=== PATIENT | female | born 1995 | race American Indian/Alaskan Native ===

== ENCOUNTER 2017-09-28 18:10 | Emergency (ER) | payer OTHER ==
[2017-09-28 20:38] VITALS: BP 133/79
[2017-09-28 20:55] LABS: Basophils % (Auto) 0.5 % (0.0-1.8); Eosinophils % (Auto) 1.3 % (0.0-4.3); Hematocrit 40.4 % (30.3-42.9); Hemoglobin 13.6 gm/dl (10.1-14.3); Mean Corpuscular HGB Conc 34 % (30-34); Mean Corpuscular Hemoglobin 32 pg (28-32); Mean Corpuscular Volume 95 fl (79-97); Platelet Count 281 K/mm3 (140-440); Red Blood Count 4.27 M/mm3 (3.65-5.03); Red Cell Distribution Width 13.7 % (13.2-15.2)
[2017-09-28 21:15] LABS: White Blood Count 9.4 K/mm3 (4.5-11.0)
[2017-09-29 01:28] LABS: Bacteria,Urine 1+ /HPF (Negative); Bilirubin,Urine NEG (Negative); Blood,Urine NEG (Negative); Ketones,Urine NEG (Negative); Leukocyte Esterase,Urine NEG (Negative); Mucus,Urine FEW /HPF; Nitrite,Urine NEG (Negative); Protein,Urine <15 mg/dL mg/dL (Negative)
== END 2017-09-29 02:00 | disposition left against medical advice (07) ==
LOC: ED 18:10
DX: R58 Hemorrhage, not elsewhere classified (principal); Z53.21 Procedure and treatment not carried out due to patient leaving prior to being seen by health care provider
CPT/HCPCS: 36415; 81001; 84702; 84703; 85025; 86850; 86900; 86901

== ENCOUNTER 2018-02-01 00:21 | Emergency (ER) | payer OTHER ==
[2018-02-01 01:34] VITALS: BP 136/90
[2018-02-01 02:06] LABS: Basophils % (Auto) 0.3 % (0.0-1.8); Eosinophils # (Auto) 0.1 K/mm3 (0.0-0.4); Eosinophils % (Auto) 0.9 % (0.0-4.3); Hematocrit 41.5 % (30.3-42.9); Hemoglobin 14.4 gm/dl (10.1-14.3); Lymphocytes # (Auto) 2.3 K/mm3 (1.2-5.4); Mean Corpuscular HGB Conc 35 % (30-34); Mean Corpuscular Hemoglobin 33 pg (28-32); Mean Corpuscular Volume 94 fl (79-97); Monocytes # (Auto) 0.9 K/mm3 (0.0-0.8); Monocytes % (Auto) 8.3 % (0.0-7.3); Platelet Count 303 K/mm3 (140-440); Red Cell Distribution Width 14.5 % (13.2-15.2)
[2018-02-01 03:21] LABS: Bilirubin,Urine NEG (Negative); Blood,Urine NEG (Negative); Color,Urine Yellow (Yellow); Mucus,Urine FEW /HPF; Protein,Urine <15 mg/dL mg/dL (Negative)
--- NOTE | 2018-02-01 07:40 | Emergency Department Report ---
ED Female HPI - General Chief complaint: Vaginal Bleeding Stated complaint: STOMACH PAIN,.VAGINAL BLEEDING,CRAMP Time Seen by Provider: 02/01/18 07:21 Source: patient Mode of arrival: Ambulatory Limitations: No Limitations - History of Present Illness Initial comments: Has been having irregular menstrual cycles for the past 3 months. Presents today with 1 day of light vaginal bleeding and intermittent bilateral lower abdominal pain. At time of presentation to the ER, patient's pain has resolved. She hasn't taken anything for it at home. Denies urinary complaints. Patient is not concerned for STDs. Denies vomiting. Endorses nausea. She has an appointment with her [employer] [facility] in 3 days. - Related Data Allergies Allergy/AdvReac Type Severity Reaction Status Date / Time No Known Allergies Allergy Unverified 09/28/17 20:29 ED Review of Systems ROS: Stated complaint: STOMACH PAIN,.VAGINAL BLEEDING,CRAMP Other details as noted in HPI Comment: All other systems reviewed and negative Gastrointestinal: abdominal pain, nausea Genitourinary: abnormal menses ED Past Medical Hx - Past Medical History Previous Medical History?: Yes Hx Asthma: Yes - Surgical History Past Surgical History?: No - Social History Smoking Status: Current Some Day Smoker ED Physical Exam - General Limitations: No Limitations General appearance: alert, in no apparent distress - Head Head exam: Present: atraumatic, normocephalic - Eye Eye exam: Present: normal appearance - Respiratory Respiratory exam: Present: normal lung sounds bilaterally. Absent: respiratory distress - Cardiovascular Cardiovascular Exam: Present: regular rate, normal rhythm. Absent: systolic murmur, diastolic murmur, rubs, gallop - GI/Abdominal GI/Abdominal exam: Present: soft, normal bowel sounds. Absent: distended, tenderness - Neurological Exam Neurological exam: Present: alert, oriented X3 - Psychiatric Psychiatric exam: Present: normal affect, normal mood - Skin Skin exam: Present: warm, dry, intact, normal color. Absent: rash ED Course Vital Signs 02/01/18 02/01/18 01:27 04:07 Temperature 98.7 F Pulse Rate 77 Respiratory 20 16 Rate Blood Pressure 136/90 O2 Sat by Pulse 100 100 Oximetry ED Medical Decision Making - Lab Data Result diagrams: 02/01/18 01:39 - Medical Decision Making 22-year-old female withpast medical history that presents today with irregular menses and mild abdominal pain. Vitals are stable. Patient is well-appearing. No abdominal pain appreciated on physical exam. Lab work and urinalysis unremarkable. Patient states that she has been having a regular MrThomas Burns for the past couple months. She has follow-up with her [employer] [facility] in 3 days. I offered her a pelvic exam, but patient felt comfortable waiting until her [facility] [facility] appointment. I felt that this is appropriate. I encouraged her to start taking 1000 mg Tylenol every 6 hours as needed for pain relief. Return precautions have been discussed. Clear to discharge. - Differential Diagnosis IUP versus ectopic , coagulopathy, miscarriage, dysmenorrhea Critical care attestation.: If time is entered above; I have spent that time in minutes in the direct care of this critically ill patient, excluding procedure time. ED Disposition Clinical Impression: Dysmenorrhea Disposition: DC-01 TO HOME OR SELFCARE Is pt being admited?: No Does the pt Need Aspirin: No Condition: Stable Instructions: Dysmenorrhea (ED) Additional Instructions: Start taking 1000 mg Tylenol every 6 hours as needed for pain relief. Follow- up with your [employer] [facility] [facility] at your scheduled appointment this week. Referrals: DANIEL CLOUD MD [Primary Care Provider] - 3-5 Days
[2018-02-01] MEDS ORDERED: TYLENOL PO ONE (07:57)
== END 2018-02-01 08:41 | disposition home or self-care (01) ==
LOC: ED 00:21
DX: N94.6 Dysmenorrhea, unspecified (principal); J45.909 Unspecified asthma, uncomplicated; F17.200 Nicotine dependence, unspecified, uncomplicated
CPT/HCPCS: 36415; 81001; 84702; 85025; 86850; 86900; 86901; 99283

== ENCOUNTER 2018-05-11 01:03 | Emergency (ER) | payer OTHER ==
[2018-05-11 01:15] VITALS: BP 128/86
[2018-05-11] MEDS ORDERED: NACL 0.9% 1000 ML 1,000 ML IV ONE (01:48)
[2018-05-11 02:16] LABS: Basophils % (Auto) 0.2 % (0.0-1.8); Eosinophils # (Auto) 0.1 K/mm3 (0.0-0.4); Eosinophils % (Auto) 1.2 % (0.0-4.3); Hematocrit 41.6 % (30.3-42.9); Hemoglobin 14.1 gm/dl (10.1-14.3); Lymphocytes # (Auto) 2.1 K/mm3 (1.2-5.4); Lymphocytes % (Auto) 27.3 % (13.4-35.0); Mean Corpuscular HGB Conc 34 % (30-34); Mean Corpuscular Hemoglobin 32 pg (28-32); Mean Corpuscular Volume 95 fl (79-97); Monocytes # (Auto) 0.6 K/mm3 (0.0-0.8); Monocytes % (Auto) 8.1 % (0.0-7.3); Platelet Count 285 K/mm3 (140-440); Red Cell Distribution Width 13.9 % (13.2-15.2)
[2018-05-11 02:30] LABS: Alanine Aminotransferase 7 units/L (7-56); Albumin 4.4 g/dL (3.9-5); BUN/Creatinine Ratio 11; Blood Urea Nitrogen 9 mg/dL (7-17); Calcium 9.3 mg/dL (8.4-10.2); Hemolysis Index 8
[2018-05-11 02:38] LABS: Bilirubin,Urine NEG (Negative); Blood,Urine NEG (Negative); Color,Urine Yellow (Yellow); Mucus,Urine 2+ /HPF
[2018-05-11 02:41] LABS: HCG Qualitative,Urine Negative (Negative)
== END 2018-05-11 09:19 ==
LOC: ED 01:03
DX: R10.30 Lower abdominal pain, unspecified (principal); Z53.21 Procedure and treatment not carried out due to patient leaving prior to being seen by health care provider
CPT/HCPCS: 36415; 80053; 81001; 81025; 83690; 85025